=== PATIENT | female | born 1980 | race Caucasian/White ===

== ENCOUNTER 2016-09-05 09:04 | Outpatient (CLI) | payer OTHER | END 2016-09-05 09:05 | disposition home or self-care (01) | DX: Z13.220 Encounter for screening for lipoid disorders (principal); N95.1 Menopausal and female climacteric states; R53.83 Other fatigue ==

== ENCOUNTER 2017-01-27 08:00 | Outpatient (CLI) | payer OTHER ==
[2017-01-27 18:23] LABS: BILIRUBIN,URINE NEGATIVE (NEGATIVE); PH,URINE 5.5 PH (5.0-7.5)
[2017-01-27 18:52] LABS: UR CULTURE IF IND NOT INDICATED; WBC,URINE 0-3 /HPF (0-5)
== END 2017-01-27 08:01 | disposition home or self-care (01) ==
LOC: LAB.R 08:00
PROVIDERS: ATTEND Nurse Practitioner Family
DX: N39.0 Urinary tract infection, site not specified (principal)
CPT/HCPCS: 81001; 87086

== ENCOUNTER 2017-02-28 10:36 | Outpatient (CLI) | payer OTHER | END 2017-02-28 10:37 | disposition critical access hospital (66) | LOC: EMS 10:36 | PROVIDERS: ATTEND Surgery | DX: R10.9 Unspecified abdominal pain (principal) | CPT/HCPCS: A0425; A0427 ==

== ENCOUNTER 2017-02-28 11:04 | Emergency (ER) | payer OTHER ==
[2017-02-28] MEDS ORDERED: SODIUM CHLORIDE 0.9% 1,000 ML IV ONE (11:25)
--- NOTE | 2017-02-28 11:25 | ED Physician Documentation ---
PD HPI ABD PAIN - Stated complaint Stated Complaint: ABD PX - History obtained from History obtained from: Patient - History of Present Illness Timing - onset: Today (abrupt severe pain left lower abd to left flank today. Has had some dysuria for the past month with visits PCP Rx witha bx for UTI though patient says cultures were negative. Had abrupt left lower pain today, which was new, and has had several watery BMs with onset of the pain.) Timing - duration: Hours Timing - details: Abrupt onset, Still present Review of Systems Constitutional: denies: Fever, Chills Nose: denies: Rhinorrhea / runny nose, Congestion Throat: denies: Sore throat Cardiac: denies: Chest pain / pressure, Pedal edema, Calf pain Respiratory: denies: Dyspnea, Cough, Wheezing GI: reports: Abdominal Pain (this mroning), Nausea, Diarrhea (this morning). denies: Vomiting : reports: Dysuria (for a month). denies: Discharge Skin: denies: Rash, Lesions Musculoskeletal: reports: Back pain (today). denies: Neck pain PD PAST MEDICAL HISTORY - Past Medical History Cardiovascular: Other (PVCs in the past) Respiratory: None Neuro: None Endocrine/Autoimmune: None GI: None : None - Past Surgical History Past Surgical History: No - Present Medications Home Medications: Ambulatory Orders Medication Instructions Recorded Confirmed HYDROcod/ACETAM 5/325 [[place] 5/325] 1 tab PO Q6H PRN #15 tablet 02/28/17 Metronidazole [Flagyl] 500 mg PO BID #14 tablet 02/28/17 Naproxen [Naprosyn] 500 mg PO BID PRN #20 tablet 02/28/17 Ondansetron HCl [Zofran] 4 mg PO Q6H PRN #20 tablet 02/28/17 - Allergies Allergies/Adverse Reactions: Allergies Allergy/AdvReac Type Severity Reaction Status Date / Time No Known Drug Allergies Allergy Verified 02/28/17 11:26 - Social History Does the pt smoke?: No Smoking Status: Never smoker Does the pt drink ETOH?: Yes Does the pt have substance abuse?: No - Immunizations Immunizations are current?: Yes PD ED PE NORMAL - Vitals Vital signs reviewed: Yes (Heart rhythm noted bigeminy with palpable heart rate 35-50, BP good. ) - General General: Alert and oriented X 3, Well developed/nourished, Other (significant pain) - HEENT HEENT: Pharynx benign - Neck Neck: Supple, no meningeal sign, No adenopathy - Cardiac Cardiac: No murmur. No: RRR (variably slow. ) - Respiratory Respiratory: Clear bilaterally - Abdomen Abdomen: Normal bowel sounds, Soft, Non distended, No organomegaly, Other ( lower abd tender with guarding and some percussion tender left lower. 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 No CMT. ) - Rectal Rectal: Deferred - Back Back: Other (does have left CVA tenderness. ) - Derm Derm: Normal color, Warm and dry - Extremities Extremities: No edema, No calf tenderness / cord - Neuro Neuro: Alert and oriented X 3, No motor deficit, No sensory deficit, Normal speech - Psych Psych: Normal mood Results - Vitals Vitals: Oxygen O2 Source Room air - Labs Labs: Microbiology 02/28/17 15:15 Wet Prep - Final Genital - Vaginal Laboratory Tests 02/28/17 02/28/17 02/28/17 11:33 11:33 12:07 WBC 9.8 RBC 4.53 Hgb 14.0 Hct 40.8 MCV 90.1 MCH 30.9 MCHC 34.3 RDW 12.6 Plt Count 220 MPV 8.1 Neut # 7.8 H Lymph # 1.3 L [place] # 0.5 Eos # 0.1 Baso # 0.1 Absolute Nucleated RBC 0.01 Nucleated RBC % 0.1 Sodium 136 Potassium 4.1 Chloride 104 Carbon Dioxide 24 Anion Gap 8.0 BUN 16 Creatinine 0.8 Estimated GFR (MDRD) 81 L Glucose 106 H Calcium 9.0 Magnesium 1.9 Total Bilirubin 1.0 AST 24 ALT 20 Alkaline Phosphatase 50 Total Protein 6.9 Albumin 4.3 Globulin 2.6 Albumin/Globulin Ratio 1.7 Lipase 24 Urine Color YELLOW Urine Clarity CLEAR Urine pH 6.0 Ur Specific [place] 1.020 Urine Protein NEGATIVE Urine Glucose (UA) NEGATIVE Urine Ketones NEGATIVE Urine Occult Blood TRACE-INTA Urine Nitrite NEGATIVE Urine Bilirubin NEGATIVE Urine Urobilinogen 0.2 (NORMAL) Ur Leukocyte Esterase NEGATIVE Ur Microscopic Review NOT INDICATED Urine Culture Comments NOT INDICATED Urine HCG, Qual NEGATIVE - Rads (name of study) abd CT Radiology: Prelim report reviewed (no free fluid. Left 4 mm distal ureteral stone with hydronephrosis ) PD MEDICAL DECISION MAKING - ED course Complexity details: considered differential (she says she has had PVC in the past and had Holter few years ago. No other abnormal rhythm. So the bigeminy today I beleive is just response to pain catecholamines. Normal BP. She has had some dysuria for few weeks without improvement on abx. consider vaginitis and pelvic does appear c/w vaginitis. tests pending. The abrupt pain today is from kidney stone, so unrelated to others. I can just assume ciarrhea this morning was intestinal response to pain, though had been on abx recently. I would not expect it directly from the ureterolithiasis, but certainly has distal ureteral stone on CT. ), d/w patient Departure - Departure Disposition: 01 Home, Self Care Clinical Impression: Bacterial vaginitis, Bigeminal rhythm, Ureterolithiasis Abdominal pain Qualifiers: Abdominal location: left lower quadrant Qualified Code(s): R10.32 - Left lower quadrant pain Condition: Stable Record reviewed to determine appropriate education?: Yes Instructions: ED Palpitations, ED Vaginosis Bacterial, ED Stone Renal W Colic Follow-Up: Mike Storey ARNP [Primary Care Provider] - Prescriptions: HYDROcod/ACETAM 5/325 [[place] 5/325] 1 tab PO Q6H PRN #15 tablet PRN Reason: Pain Metronidazole [Flagyl] 500 mg PO BID #14 tablet Naproxen [Naprosyn] 500 mg PO BID PRN #20 tablet PRN Reason: Pain Ondansetron HCl [Zofran] 4 mg PO Q6H PRN #20 tablet PRN Reason: Nausea / Vomiting Comments: The abrupt pain you have today is from passing a kidney stone. It is almost all the way to the bladder and has just a little bit further to go. However he can potentially hang up there and stay lodged in the ureter. Recheck if it is not better over the next 2-3 days. Meanwhile treated with anti-inflammatories naproxen twice daily and that can be continued for a few days after passing it as well. Add Tylenol or hydrocodone if needed for worse pain. Use ondansetron if needed for nausea. Drink lots of fluids and stay well-hydrated. Additionally it does look like you have some vaginitis and will treat that with metronidazole twice daily for a week. The culture results from the pelvic exam today will result in 2-3 days and will call you if we need to amend the antibiotic. He also have an abnormal heart rhythm called bigeminy which is a frequent PVCs. There are typically thought of his benign and are likely related to a stress response from the pain in such today. Follow-up with your primary care though to see if it has resolved or only just occasional PVCs in the near future. Discharge Date/Time: 02/28/17 16:01
[2017-02-28 11:43] LABS: BASOPHILS # (AUTO) 0.1 10^3/uL (0.0-0.1); BASOPHILS % (AUTO) 0.5 %; EOSINOPHILS # (AUTO) 0.1 10^3/uL (0.0-0.7); EOSINOPHILS % (AUTO) 1.5 %; HCT - HEMATOCRIT 40.8 % (37.0-47.0); LYMPHOCYTES # (AUTO) 1.3 10^3/uL (1.5-3.5); LYMPHOCYTES % (AUTO) 13.5 %; MEAN CORPUSCULAR HEMOGLOBIN 30.9 pg (27.0-31.0); MEAN CORPUSCULAR HGB CONC 34.3 g/dL (32.0-36.0); MEAN CORPUSCULAR VOLUME 90.1 fL (81.0-99.0); MEAN PLATELET VOLUME 8.1 fL (7.9-10.8); MONOCYTES # (AUTO) 0.5 10^3/uL (0.0-1.0); MONOCYTES % (AUTO) 5.2 %; NEUTROPHILS # (AUTO) 7.8 10^3/uL (1.5-6.6); NEUTROPHILS % (AUTO) 79.3 %; NUCLEATED RED BLOOD CELLS AUTO 0.1 /100WBC; RED BLOOD COUNT 4.53 10^6/uL (4.20-5.40); RED CELL DISTRIBUTION WIDTH 12.6 % (12.0-15.0); UNCORRECTED WHITE BLOOD COUNT 9.8 x10^3/uL; WHITE BLOOD COUNT 9.8 x10^3/uL (4.8-10.8)
[2017-02-28 11:56] LABS: ALBUMIN/GLOBULIN RATIO 1.7 (1.0-2.2); CREATININE 0.8 mg/dL (0.4-1.0); MAGNESIUM 1.9 mg/dL (1.7-2.8); POTASSIUM 4.1 mmol/L (3.5-5.0); TOTAL PROTEIN 6.9 g/dL (6.7-8.2)
[2017-02-28] MEDS ORDERED: HYDROmorphone 0.5 MG/0.5 ML SYRINGE IVP STA (12:21)
[2017-02-28 12:22] LABS: BILIRUBIN,URINE NEGATIVE (NEGATIVE)
[2017-02-28 12:25] LABS: HCG UR QUAL NEGATIVE; UA CHARGE (STRIP ONLY) YES; UR CULTURE IF IND NOT INDICATED
[2017-02-28] MEDS ORDERED: HYDROmorphone 1 MG/ML SYRINGE ONE (12:48)
[2017-02-28] MEDS ORDERED: IOPAMIDOL-300 50 ML VIAL PO ONE (13:42)
[2017-02-28] MEDS ORDERED: IOPAMIDOL-300 100 ML VIAL IVP ONE (13:42)
--- NOTE | 2017-02-28 14:06 | CT Preliminary Report ---
Exam: CT ABDOMEN/PELVIS W/ IMPRESSION: 1. 4 mm mildly obstructing stone at the left UVJ with very minimal upstream left-sided hydroureterone phrosis. 2. Additional nonobstructing stones in both kidneys. [facility] SITE ID: [id number]
--- NOTE | 2017-02-28 14:09 | CT Report ---
EXAM: CT ABDOMEN AND PELVIS EXAM DATE: 02/28/2017 01:18 PM. CLINICAL HISTORY: Lower abd/left abd pain abrupt today. COMPARISONS: None. TECHNIQUE: Routine helical CT imaging was performed through the abdomen and pelvis. IV contrast: Amt/ type. Enteric contrast: No. Reconstructions: Coronal and sagittal. In accordance with CT protocol optimization, one or more of the following dose reduction techniques w ere utilized for this exam: automated exposure control, adjustment of mA and/or KV based on patient s ize, or use of iterative reconstructive technique. FINDINGS: Lung Bases: Unremarkable. Liver: 11 mm cyst noted in segment 6 of the liver. Additional subcentimeter hypodensities are seen wi thin the liver which are nonspecific, but probably cysts. Gallbladder/Bile Ducts: Unremarkable. Spleen: Normal. Pancreas: Normal. Adrenal Glands: Normal. Kidneys: Tiny 2 mm nonobstructing stone in the midpole of the right kidney. Nonobstructing 4 mm stone s in the lower pole of the left kidney. 4 mm stone at the left UVJ with very minimal left hydroureter onephrosis. Peritoneal Cavity/Bowel: Normal. No free fluid, free air or adenopathy. No masses or acute inflammato ry process. Appendix is somewhat challenging to visualize, but possible tubular structure is noted in the right lower quadrant. There is no gross evidence of appendicitis. Pelvic Organs: Small amount of free fluid within the pelvis, likely physiologic. Stone at the left UV J. Otherwise, bladder unremarkable. Pelvic organs normal. Vasculature: No aneurysms or other significant abnormality. Bones: No significant abnormality. Other: None. IMPRESSION: 1. 4 mm mildly obstructing stone at the left UVJ with very minimal upstream left-sided hydroureterone phrosis. 2. Additional nonobstructing stones in both kidneys. [facility] Referring Provider Line: [phone] SITE ID: [id number]
[2017-02-28] MEDS ORDERED: KETOROLAC 60 MG/2 ML VIAL IVP STA (15:07)
[2017-02-28] MEDS ORDERED: KETOROLAC 30 MG/ML VIAL ONE (15:31)
[2017-02-28] MEDS ORDERED: metroNIDAZOLE 250 MG TABLET PO STA (15:35)
[2017-02-28] MEDS ORDERED: metroNIDAZOLE 250 MG TABLET PO ONE (15:54)
[2017-02-28 16:02] VITALS: BP 115/65
== END 2017-02-28 16:01 | disposition home or self-care (01) ==
LOC: EDUNIT# → ED 11:04
DX: N76.0 Acute vaginitis (principal); B96.89 Other specified bacterial agents as the cause of diseases classified elsewhere; N13.2 Hydronephrosis with renal and ureteral calculous obstruction; R00.8 Other abnormalities of heart beat
CPT/HCPCS: 36415; 74177; 80053; 81003; 81025; 83690; 83735; 85025; 87210; 87491; 87591; 93005; 96361; 96374; 96375; 99284; 99285; A9270; J1170; 81001; 87086

== ENCOUNTER 2017-05-07 12:25 | Outpatient (CLI) | payer OTHER ==
--- NOTE | 2017-05-07 19:46 | CARDIAC PROCEDURE NOTE ---
DATE OF SERVICE: 05/07/2017 Physician: DIMITRY Holloway DATE OF SERVICE: 05/07/2017 PCP: DIMITRY Gonsalez PROCEDURE: Cardiac treadmill stress test. REASON FOR PROCEDURE: PVC arrhythmia. CARDIAC RISK FACTORS: None. PREVIOUS CARDIAC PROCEDURES: Holter monitor. CLINICAL HISTORY A 36-year-old female without known coronary artery disease. Initial resting vital signs: Blood pressure 104/76, heart rate 70, height 64 inches, weight 154 pounds, BMI 26.4. PROCEDURE AND FINDINGS: The patient's identity and date verified, consent signed. The patient performed treadmill exercise using a [place] protocol, completing 9 minutes 17 seconds, and completing an estimated workload of 10.1 metabolic equivalents. Maximal blood pressure was 148/74 with a heart rate of 175 beats per minute or 95% of maximum predicted heart rate for age. The blood pressure response to exercise was within normal limits. The patient stopped because she was tiring. The resting ECG demonstrated normal sinus rhythm with frequent PVCs that included bigeminy and trigeminy. PVCs were unifocal. Maximum ST segment depression was less than 0.5 mm and upsloping. The PVCs greatly diminished during exercise and returned at rest. The one minute heart rate recovery was under 100. FINAL IMPRESSION 1. Negative stress electrocardiogram for ischemia by electrocardiographic criteria. 2. Negative stress test clinically for angina. 3. Frequent bigeminy and trigeminy at rest, but infrequent during exercise. 4. [place] [employer] functional class I. TD: 05/07/2017 19:54 [facility]
[2017-05-13 17:58] VITALS: BP 104/76
== END 2017-05-07 12:26 | disposition home or self-care (01) ==
LOC: DI 12:25
PROVIDERS: ATTEND Nurse Practitioner Family
DX: I49.8 Other specified cardiac arrhythmias (principal)
CPT/HCPCS: 93017

== ENCOUNTER 2018-01-09 11:44 | Emergency (ER) | payer OTHER ==
[2018-01-09 11:51] VITALS: BP 118/66
[2018-01-09 12:13] LABS: BASOPHILS % (AUTO) 0.5 %; EOSINOPHILS # (AUTO) 0.1 10^3/uL (0.0-0.7); EOSINOPHILS % (AUTO) 0.8 %; HGB - HEMOGLOBIN 14.9 g/dL (12.0-16.0); LYMPHOCYTES # (AUTO) 1.2 10^3/uL (1.5-3.5); LYMPHOCYTES % (AUTO) 11.5 %; MEAN CORPUSCULAR HEMOGLOBIN 32.1 pg (27.0-31.0); MEAN CORPUSCULAR VOLUME 91.5 fL (81.0-99.0); MEAN PLATELET VOLUME 8.5 fL (7.9-10.8); MONOCYTES # (AUTO) 0.5 10^3/uL (0.0-1.0); MONOCYTES % (AUTO) 4.3 %; NEUTROPHILS # (AUTO) 8.8 10^3/uL (1.5-6.6); NEUTROPHILS % (AUTO) 82.9 %; PLT - PLATELET COUNT 229 10^3/uL (130-450); RED BLOOD COUNT 4.65 10^6/uL (4.20-5.40); RED CELL DISTRIBUTION WIDTH 12.7 % (12.0-15.0); WHITE BLOOD COUNT 10.6 x10^3/uL (4.8-10.8)
[2018-01-09 12:14] LABS: BILIRUBIN,URINE NEGATIVE (NEGATIVE); GLUCOSE, URINE (UA) NEGATIVE (NEGATIVE); KETONES,URINE (UA) NEGATIVE (NEGATIVE); LEUKOCYTE ESTERASE, URINE NEGATIVE (NEGATIVE); NITRITE,URINE NEGATIVE (NEGATIVE); OCCULT BLOOD,URINE MODERATE (NEGATIVE); PH,URINE 5.5 PH (5.0-7.5); PROTEIN,URINE NEGATIVE (NEGATIVE); UROBILINOGEN,URINE 0.2 (NORMAL) E.U./dL (NORMAL)
[2018-01-09 12:16] LABS: CLARITY,URINE CLEAR (CLEAR); HCG UR QUAL NEGATIVE
[2018-01-09 12:27] LABS: ALBUMIN 4.7 g/dL (3.2-5.5); ALBUMIN/GLOBULIN RATIO 1.6 (1.0-2.2); BILIRUBIN,TOTAL 1.6 mg/dL (0.2-1.0); CALCIUM 9.2 mg/dL (8.5-10.3); CREATININE 0.9 mg/dL (0.4-1.0); TOTAL PROTEIN 7.6 g/dL (6.7-8.2)
[2018-01-09 12:33] LABS: BACTERIA,URINE None Seen /HPF (None Seen); SQUAMOUS EPITHELIAL CELL,UR RARE Squamous (<= Few)
[2018-01-09] MEDS ORDERED: MORPHINE 2 MG/ML CARPUJECT IVP STA (12:35)
[2018-01-09] MEDS ORDERED: SODIUM CHLORIDE 0.9% 1,000 ML IV ONE (12:35)
[2018-01-09] MEDS ORDERED: KETOROLAC 60 MG/2 ML VIAL IVP STA (12:35)
[2018-01-09] MEDS ORDERED: ONDANSETRON 4 MG/2 ML VIAL IVP STA (12:35)
--- NOTE | 2018-01-09 12:49 | ED Physician Documentation ---
PD HPI ABD PAIN - Stated complaint Stated Complaint: ABX PX - Chief complaint Chief Complaint: Abd Pain - History obtained from History obtained from: Patient - History of Present Illness Timing - onset: Today (37-year-old woman with history of renal colic 1. Chart review shows that in February of last year she had a CT showing a 4 mm left UVJ stone and had 2 x 2 mm nephroliths on the right at the time. She had sudden onset right-sided flank pain associated with several episodes of diarrhea and urinary frequency. Diarrhea has since abated. Pain is moderate to severe and nonradiating. She is not nauseous. It does feel reminiscent of prior renal colic.) Review of Systems Ten Systems: 10 systems reviewed and negative Constitutional: denies: Fever, Chills Cardiac: denies: Chest pain / pressure, Palpitations Respiratory: denies: Dyspnea, Cough GI: reports: Diarrhea (gone). denies: Vomiting : reports: Frequency. denies: Hematuria PD PAST MEDICAL HISTORY - Past Medical History Past Medical History: Yes Cardiovascular: Other Respiratory: None Endocrine/Autoimmune: None GI: None : Kidney stones Other Past Medical History: Kidney stone - Past Surgical History Past Surgical History: No - Present Medications Home Medications: Ambulatory Orders Medication Instructions Recorded Confirmed Ibuprofen [Motrin] 800 mg PO Q8H PRN #30 tablet 01/09/18 Oxycodone HCl/Acetaminophen 1 - 2 each PO Q6H PRN #14 tablet 01/09/18 [Percocet 5-325 mg Tablet] - Allergies Allergies/Adverse Reactions: Allergies Allergy/AdvReac Type Severity Reaction Status Date / Time No Known Drug Allergies Allergy Verified 01/09/18 11:50 - Social History Does the pt smoke?: No Smoking Status: Never smoker Does the pt drink ETOH?: Yes Does the pt have substance abuse?: No - Family History Family history: reports: Non contributory - Immunizations Immunizations are current?: Yes - POLST Patient has POLST: No PD ED PE NORMAL - Vitals Vital signs reviewed: Yes - General General: Alert and oriented X 3 (appears uncomfortable) - HEENT HEENT: PERRL, EOMI - Neck Neck: Supple, no meningeal sign, No bony TTP - Respiratory Respiratory: No respiratory distress - Abdomen Abdomen: Normal bowel sounds, Soft, Non tender - Back Back: No CVA TTP - Extremities Extremities: No edema - Neuro Neuro: Alert and oriented X 3, Normal speech Results - Vitals Vitals: Vital Signs - 24 hr 01/09/18 11:49 Temperature 36.3 C L Heart Rate 86 Respiratory 16 Rate Blood Pressure 118/66 O2 Saturation 100 Oxygen O2 Source Room air - Labs Labs: Laboratory Tests 01/09/18 01/09/18 01/09/18 12:00 12:00 12:00 WBC 10.6 RBC 4.65 Hgb 14.9 Hct 42.5 MCV 91.5 MCH 32.1 H MCHC 35.0 RDW 12.7 Plt Count 229 MPV 8.5 Neut # (Auto) 8.8 H Lymph # (Auto) 1.2 L [place] # (Auto) 0.5 Eos # (Auto) 0.1 Baso # (Auto) 0.0 Absolute Nucleated RBC 0.00 Nucleated RBC % 0.0 Sodium 138 Potassium 3.8 Chloride 104 Carbon Dioxide 26 Anion Gap 8.0 BUN 20 Creatinine 0.9 Estimated GFR (MDRD) 70 L Glucose 115 H Calcium 9.2 Total Bilirubin 1.6 H AST 21 ALT 16 Alkaline Phosphatase 48 Total Protein 7.6 Albumin 4.7 Globulin 2.9 Albumin/Globulin Ratio 1.6 Lipase 38 Urine Color YELLOW Urine Clarity CLEAR Urine pH 5.5 Ur Specific [place] 1.025 Urine Protein NEGATIVE Urine Glucose (UA) NEGATIVE Urine Ketones NEGATIVE Urine Occult Blood MODERATE H Urine Nitrite NEGATIVE Urine Bilirubin NEGATIVE Urine Urobilinogen 0.2 (NORMAL) Ur Leukocyte Esterase NEGATIVE Urine RBC 11-25 H Urine WBC 0-3 Ur Squamous Epith Cells RARE Squamous Urine Bacteria None Seen Ur Microscopic Review INDICATED Urine Culture Comments NOT INDICATED Urine HCG, Qual NEGATIVE PD MEDICAL DECISION MAKING - ED course ED course: 37-year-old woman with pain reminiscent of renal colic on the right side, known prior nephrolith on that side on CT, given her young age I do not think repeat CT is in order today given that her pain was easily controlled after a single round of medications. - Sepsis Event Vital Signs: Vital Signs - 24 hr 01/09/18 11:49 Temperature 36.3 C L Heart Rate 86 Respiratory 16 Rate Blood Pressure 118/66 O2 Saturation 100 Oxygen O2 Source Room air Departure - Departure Disposition: 01 Home, Self Care Clinical Impression: Ureterolithiasis Condition: Good Record reviewed to determine appropriate education?: Yes Instructions: ED Stone Renal W Colic Prescriptions: Ibuprofen [Motrin] 800 mg PO Q8H PRN #30 tablet PRN Reason: PAIN &/OR FEVER Oxycodone HCl/Acetaminophen [Percocet 5-325 mg Tablet] 1 - 2 each PO Q6H PRN # 14 tablet PRN Reason: pain Comments: Call your doctor to arrange a follow-up appointment, make the next available appointment. In the interim, return anytime if worse or if new symptoms develop. Discharge Date/Time: 01/09/18 13:42
== END 2018-01-09 13:42 | disposition home or self-care (01) ==
LOC: ED 11:44
DX: N20.1 Calculus of ureter (principal); Z87.442 Personal history of urinary calculi
CPT/HCPCS: 36415; 80053; 81001; 81003; 81025; 83690; 85025; 87086; 96361; 96374; 96375; 99283; 99284